=== PATIENT | male | born 2000 | race Caucasian/White ===

== ENCOUNTER 2020-10-02 10:24 | Outpatient (RCR) | payer MEDICAID, SELFPAY ==
--- NOTE | 2020-10-03 07:42 | HP.OTFCE.D ---
FCE D/C Summary - Discharge IRINEO SALOMON was seen for a one time visit for an FCE on 10/02/20 and is discharged.
--- NOTE | 2020-10-03 07:42 | HP.FCE ---
Floor (Occasional 1-33% of Day): 50# Floor (Frequent 34-66% of Day): 25# Floor (Constant 67-100% of Day): 10# Floor PDL: Medium Knee (Occasional 1-33% of Day): 50# Knee (Frequent 34-66% of Day): 25# Knee (Constant 67-100% of Day): 10# Knee PDL: Medium Waist (Occasional 1-33% of Day): 50# Waist (Frequent 34-66% of Day): 25# Waist (Constant 67-100% of Day): 10# Waist PDL: Medium Shoulder (Occasional 1-33% of Day): 50# Shoulder (Frequent 34-66% of Day): 25# Shoulder (Constant 67-100% of Day): 10# Shoulder PDL: Medium Overhead (Occasional 1-33% of Day): 35# Overhead (Frequent 34-66% of Day): 18# Overhead (Constant 67-100% of Day): 7# Overhead PDL: Light-Medium Comments: pt demo with good lifting mechanics during lift test Bending: Frequent Ability (34-66% of day) Comments: Not a job requirement Comments: Not a job requirement Reaching out: Frequent Ability (34-66% of day) Reaching up: Frequent Ability (34-66% of day) Sitting: Frequent Ability (34-66% of day) Walking: Frequent Ability (34-66% of day) Standing: Frequent Ability (34-66% of day) Duration Sedentary Sedentary Light Light Light Medium Medium Medium Heavy Very Heavy Heavy Occasional (0-33% of day) Frequent (34-66% of day) Constant (67-100% of day) 10 # Negligible Negligible 15 # 8 # Negligible 20 # 10# Negli. 35 # 18 # 7 # 50 # 25 # 10 # 75 # 100 # >100 # 38 # 50 # >50 # 15 # 20 # >20 # Height: 1.78 m Weight:: 83.007 kg Hand Dominance: Right Medical History Including Restrictions: Pt states he is good health and has not concerns. States he had an issue with low heart rate with chest pains while at work but after cardiac eval per pt it was determined he as a low heart rate. Diagnoses: low heart rate Symptoms: low heart rate. 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 pt quit this job and moved to [facility]. Behavioral: Pt was cooperative during the assessment and put forth good effort ADLS: pt states he lives with his family in two story home. Physical Examination: heart rate 44 ROM: pt demo ROM Limited hip flex bilaterally at 80* this is WFL. all other ROM is WFL Strength: pt demo with right UE and LE at 5/5 left UE and LE at 4+/5. pts left side was weaker than left but still testing WFL Right Extractor Plant Operator Strength Average: 63.00 Right Extractor Plant Operator Strength Percentile: .3% Left Extractor Plant Operator Strength Average: 50.00 Left Extractor Plant Operator Strength Percentile: <1.3% Right Lateral Pinch Average: 10.00 Right Lateral Pinch Percentile: <10% Left Lateral Pinch Average: 10.00 Left Lateral Pinch Percentile: <10% Right Tripod Pinch Average: 5.33 Right Tripod Pinch Percentile: <10% Left Tripod Pinch Average: 8.00 Left Tripod Pinch Percentile: <10% Sensation: Denies Fine Motor: Denies Balance: no noted loss of balance with functional assessment. pt did however have limited balance with single leg stand while performing ROM testing. Pt did not loss balance but demo limited time to stand on one leg. Bending: Pt demo the ability to bend forward three times, ten times and ten times rapidly. pt can bend forward on a frequent ability. Squatting: Not a Physical requirement Kneeling: Not a Physical requirement Reaching out/up: pt demo the ability to reach out/up three times/ten times and ten times rapidly. pt heart rate 68. pt can reach up/ out on a frequent ability Walking: pt states he walks and has walked up to 20 miles a day - pt states he ambulates 7-8 miles a day. pt can walk on a frequent ability. Standing: pt demo good ability to stand with both feet on the ground for 15 min with no expressed or apparent difficulty - no loss of balance- pt can stand of a frequent ability Sitting: pt demo the ability to sit for 40 min with no expressed or apparent discomfort. pt can sit on a frequent ability Climbing Stairs: pt ascended/descended ten steps with no use of handrail and a reciprocal step pattern. heart rate after 85 Floor Lift: pt demo good safe lift mechanics 50# from floor with good ability Knee Lift: pt demo good safe lift mechanics 50# from this level with good ability Waist Lift: pt demo good safe lift mechanics 50# from this level with good ability Shoulder Lift: pt demo good safe lift mechanics 50# from this level with good ability Overhead Lift: pt demo good safe lift mechanics 35# from this level with good ability Carrying: pt demo the ability to carry 50# for 40 feet with good ability Comments: pt demo the ability for pushing/pulling at 50# for a frequent. pt demo the ability to push/pull at 51-100# on an occasional ability. after lifting and over head task pts heart rate was 45 and ranged 40-52
== END 2020-10-02 19:00 | disposition home or self-care (01) ==
LOC: OT 10:24
PROVIDERS: Referring Provider Physician Assistant Surgical; Visit Provider Physician Assistant Surgical
DX: Z02.1 Encounter for pre-employment examination (principal)
CPT/HCPCS: 97750

== ENCOUNTER 2023-12-14 17:53 | Emergency (ER) | payer MEDICAID, SELFPAY ==
[2023-12-14 17:54] VITALS: BP 125/78; PULSE 48; RESP 18; TEMP 36.9; O2SAT 100; BMI 29.4
--- NOTE | 2023-12-14 18:38 | ED.VIS.DENTA ---
HPI History of Present Illness Chief Complaint: Dental Informant: patient Onset/Context/Timing Onset: Today Context: Sudden Onset Timing: Continuous Quality: Sharp Location: Right lower jaw Worsened by: Nothing Relieved by: - (Nothing) Associated Symptoms Assocated Symptom - Dental: cold sensitivity; Negative for fever, jaw swelling, face swelling or hot sensitivity Narrative Narrative: Patient presents with dental pain that began today. Patient states he has been having intermittent dental pain for the past few months. Patient states that today it became sharp and radiated to the right side of his head. Patient states nothing makes it worse and nothing makes it better. Patient does admit to cold sensitivity however. Patient denies any swelling of his jaw or face. Patient denies any fevers or chills. Patient denies any difficulty breathing or difficulty swallowing. PFSH PFSH Medical History no medical history no medical history Home Medications ?Medication ?Instructions ?Recorded ?Last Taken ?Type penicillin V potassium 500 mg 500 mg PO 4X/DAY #40 tabs 12/14/23 Unknown Rx tablet Allergy/AdvReac Type Severity Reaction Status Date / Time No Known Allergies Allergy Verified 12/14/23 17:55 Surgical History no surgical history no surgical history Social History Smoking Status: Never smoker ROS ROS ED Constitutional Constitutional ED: Denies chills or fever(s) Eyes Eyes: Denies blurry vision or change in vision ENT ENT ED: Denies rhinorrhea or sore throat Cardiovascular Cardiovascular: Denies chest pain or palpitations Respiratory/Chest Respiratory/Chest: Denies cough or dyspnea Gastrointestinal Gastrointestinal: Denies nausea or vomiting Genitourinary Genitourinary ED: Denies dysuria or hematuria Musculoskeletal Musculoskeletal: Denies back pain or neck pain Integumentary Denies abscess or rash Neurologic Neurologic: Reports headache(s); Denies weakness Allergic/Immunologic Allergic/Immunologic ED: Denies mouth swelling or urticaria EXAM Physical Exam Const Vital Signs: 12/14/23 17:54 Temperature 98.4 F Temperature Source Temporal Pulse Rate 48 L Respiratory Rate 18 Blood Pressure 125/78 H Blood Pressure Mean 93 Pulse Ox 100 Oxygen Delivery Method Room Air Positive well nourished and well developed General Appearance ED: well developed and NAD HEENT HEENT Narrative: There are multiple dental caries noted over the right lower molars. There are also some dental caries noted over the right upper molars. There is some mild gingival edema and tenderness over the right lower molar area. There is no fluctuance. There is no evidence of any abscess. There is no sublingual edema. Oropharynx is clear. Airway is patent. There is no evidence of Sebastian's angina. Mouth ED: Yes oral and palatal mucosa normal Mouth: oral and palatal mucosa normal Teeth and Gingiva: caries and gingiva abnormal Positive for gingival edema and gingival tenderness Throat: posterior oropharynx normal Neck no lymphadenopathy, supple and no JVD General: Negative for anterior neck swelling, tenderness or submandibular swelling Neuro oriented x3, CN's II-XII intact bilaterally, moves all extremities, no focal motor deficits and no sensory deficits noted Sensorium / Orientation: alert Motor Exam: strength 5/5 throughout Psych mental status grossly normal MDM MDM MDM Narrative Medical decision making narrative: Patient was advised that these are most likely infected dental caries. Patient was given a dose of Pen-Vee K here. Patient was given a prescription for Pen-Vee K. Patient was given a dental referral list. Patient was instructed to follow-up with his primary care physician in 5 to 7 days. Patient was also instructed to follow-up with his dentist in 5 to 7 days. Patient was instructed to return if worse in any way. Patient understood and was agreeable with the plan. All questions were answered. Discharge Plan Triage Chief Complaint: Dental ED Provider: Emerson Minaya Dx/Rx/DC Orders Clinical Impression: Infected dental caries Instructions: ED Dental Pain, ED Dental Cavity Prescriptions: New penicillin V potassium 500 mg tablet 500 mg PO 4X/DAY Qty: 40 0RF Primary Care Provider: Care Physician,No Primary Referrals: Care Physician,No Primary [Primary Care Provider] - Dentist,Your [STAFF PHYSICIAN] - 5-7 Days Print Language: [place] Disposition Disposition: Home, Self Care
[2023-12-14] MEDS: Penicillin Vk 250 MG Tablet 500 MG PO (18:50)
== END 2023-12-14 18:52 | disposition home or self-care (01) ==
PROVIDERS: Emergency Provider Emergency Medicine; Visit Provider Emergency Medicine
DX: K02.9 Dental caries, unspecified (principal)
CPT/HCPCS: 99282

== ENCOUNTER 2023-12-28 19:07 | Emergency (ER) | payer MEDICAID, SELFPAY ==
[2023-12-28 19:08] VITALS: BP 137/92; PULSE 97; RESP 16; TEMP 36.8; O2SAT 97; BMI 28.6
--- NOTE | 2023-12-28 19:46 | RAD_ITS ---
STUDY: X-RAY CHEST REASON FOR EXAM: Male, 23 years old. chest pain TECHNIQUE: AP portable COMPARISON: None. FINDINGS: The lungs are clear and expanded. There is no demonstrated pleural abnormality. Borderline cardiomegaly.. Normal mediastinum and tatyana. Normal visualized pulmonary arteries. Normal visualized aortic arch and descending thoracic aorta. Normal visualized thoracic spine. Normal visualized ribs, clavicles, and shoulders. There is no demonstrated abnormality of the visualized soft tissue structures of the upper abdomen. RAD/Chest 1 View (Portable) IMPRESSION: No acute cardiopulmonary pathology Electronically Signed: Reagan York MD at 20:25 EDT ,
--- NOTE | 2023-12-28 19:46 | ED.VIS.CHEST ---
HPI History of Present Illness Chief Complaint: Chest Pain Detail of Chief Complaint: Cough and chest pain Informant: patient Narrative Narrative: Patient presents to the emergency department with complaint of a cough that has had for 4 days. Patient also developed some chest discomfort retrosternal 3 days ago but then that resolved and was better for 2 days until today when he went to work and started moving around got more discomfort. He describes a light discomfort or pressure retrosternally that gets worse with activity. Yesterday he woke up feeling very short of breath. He went to urgent care yesterday and was diagnosed with a common cold. He denies recent travel or surgery. No history of PE or DVT. He had no fevers. Cough mostly nonproductive. No significant family history of heart disease. [facility] Medical History (Updated 12/28/23 @ 20:[address] Ugo Milton, DO) Heart abnormality Home Medications ?Medication ?Instructions ?Recorded ?Last Taken ?Type penicillin V potassium 500 mg 500 mg PO 4X/DAY #40 tabs 12/14/23 Unknown Rx tablet Allergy/AdvReac Type Severity Reaction Status Date / Time No Known Allergies Allergy Verified 12/28/23 19:10 Social History Smoking Status: Never smoker ROS ROS ED Review of Systems ROS Unobtainable: other Constitutional Constitutional ED: Reports lethargy; Denies chills, fever(s), sweats or weight loss Eyes Eyes: Denies blurry vision, change in vision or diplopia ENT ENT ED: Denies rhinorrhea or sore throat Cardiovascular Cardiovascular: Reports chest pain; Denies orthopnea or racing heartbeat Respiratory/Chest Respiratory/Chest: Reports cough and dyspnea; Denies dyspnea on exertion, orthopnea or sputum Gastrointestinal Gastrointestinal: Denies abdominal pain, diarrhea, nausea or vomiting Genitourinary Genitourinary ED: Denies dysuria, hematuria or urinary frequency Musculoskeletal Musculoskeletal: Denies arthralgias, back pain, myalgias or neck pain Integumentary Denies abscess, Abrasions or rash Neurologic Neurologic: Denies headache(s) or weakness Psychiatric Psychiatric: Denies anxiety, depression or suicidal thoughts Endocrine Endocrinology: Denies polydipsia, polyphagia or polyuria Hematologic/Lymphatic Hematologic/Lymphatic: Denies easy bleeding, easy bruising or lymphadenopathy Allergic/Immunologic Allergic/Immunologic ED: Denies mouth swelling, tongue swelling or urticaria EXAM Physical Exam Const Vital Signs: 12/28/23 19:08 12/28/23 20:00 12/28/23 20:08 Temperature 98.3 F Temperature Source Temporal Pulse Rate 97 59 L Respiratory Rate 16 16 Blood Pressure 137/92 H 122/83 H Blood Pressure Mean 107 96 Pulse Ox 97 97 Oxygen Delivery Method Room Air Room Air Room Air Positive well nourished and well developed General Appearance ED: well developed and NAD HEENT Reports TM's clear and moist mucous membranes normocephalic and atraumatic; Negative for trauma or tenderness Tympanic Membrane ED: Yes TM's clear Eyes PERRL and EOMs intact bilaterally General Eye ED: Negative for pale conjunctiva or scleral icterus Neck no lymphadenopathy, supple and no JVD General: Negative for tenderness Chest Wall inspection of chest normal and palpation of chest normal Chest: Negative for tenderness Resp normal respiratory effort and clear to auscultation bilaterally Effort and Inspection: Negative for respiratory distress or pain with movement Auscultation: Negative for rhonchi, wheezes or diminished lung sounds Cardio regular rate, regular rhythm, S1 normal heart sound, S2 normal heart sound and no murmurs Peripheral Pulses: pulses 2+ throughout GI normal to inspection, nondistended, normoactive bowel sounds, soft to palpation, non-tender, non-distended and no masses Back/Spine no CVA tenderness and no thoracic nor lumbar tenderness Extremity normal to inspection General Extremety ED: Negative for edema General Extremity: Negative for edema Neuro oriented x3, CN's II-XII intact bilaterally, no sensory deficits noted and gait normal Sensorium / Orientation: awake, alert, oriented to person, oriented to place and oriented to time Motor Exam: strength 5/5 throughout and strength abnormal Psych mental status grossly normal Skin no rashes or lesions noted and no wounds MDM MDM MDM Narrative Medical decision making narrative: Patient with cough and then chest pain for 4 days. On exam a.m. he looks well. EKG obtained on arrival showed a sinus rhythm with a first-degree AV block with ventricular rate of 85 bpm. CBC with differential white count 6.0 with hemoglobin 15.5 and platelet count of 278. Chemistries unremarkable. D-dimer was normal at less than 0.27. Chemistries unremarkable. Troponin was 6. 1 view chest x-ray was normal. Patient had COVID flu and RSV testing that was negative. This point I feel he can be safely discharged to home. Suspect likely viral URI. Etiology of his chest pain is suspect may be musculoskeletal. Patient advised to take ibuprofen for discomfort. Lab Data Attestation: I reviewed the patient's lab results. Labs: Laboratory Results - last 24 hr 12/28/23 19:30 WBC 6.0 RBC 5.13 Hgb 15.5 Hct 43.6 MCV 85.0 MCH 30.2 MCHC 35.6 RDW Std Deviation 37.5 RDW Coeff of Bj 12.1 Plt Count 278 MPV 10.1 Immature Gran % (Auto) 0.300 Neut % (Auto) 62.4 Lymph % (Auto) 20.6 [place] % (Auto) 13.8 H Eos % (Auto) 2.2 Baso % (Auto) 0.7 Absolute Neuts (auto) 3.8 Absolute Lymphs (auto) 1.24 Nucleated RBC % 0 D-Dimer Quant (PE/DVT) < 0.27 L Sodium 138 Potassium 3.3 L Chloride 105 Carbon Dioxide 24.0 Anion Gap 9 BUN 14 Creatinine 1.22 Estim Creat Clear Calc 102.52 Est GFR (MDRD) Af Amer 93 Est GFR (MDRD) Non-Af 77 BUN/Creatinine Ratio 11.5 Glucose 122 H Calcium 9.3 Troponin I High Sens 6 Radiography Diagnostic Testing: Clinical Impression(s) from Imaging Studies Chest X-Ray 12/28/23 19:46 IMPRESSION: No acute cardiopulmonary pathology Electronically Signed: Reagan York MD at 20:25 EDT , Discharge Plan Triage Chief Complaint: Chest Pain ED Provider: Ugo Milton Dx/Rx/DC Orders Clinical Impression: URI, acute, Chest pain Instructions: ED Chest Pain, Uncertain Cause, ED URI, Viral, No Abx (Adult) Prescriptions: No Action penicillin V potassium 500 mg tablet 500 mg PO 4X/DAY Qty: 40 0RF Primary Care Provider: Vaughn Powell Referrals: Town Doctor,Out of [Non-Staff] - Activity Restrictions/Additional Instructions: See your family doctor within next 3 to 5 days. Print Language: Malagasy Disposition Disposition: Home, Self Care
[2023-12-28 19:57] LABS: Absolute Lymphocyte Count 1.24 X10^3/uL (0.83-4.51); Absolute Neutrophil Count 3.8 X10^3/uL (2.0-7.7); Basophil# 0.04 X10^3/uL; Basophil% 0.7 % (0-1); Eosinophil# 0.13 X10^3/uL; Eosinophils% 2.2 % (0-5); Hematocrit 43.6 % (40-54); Hemoglobin 15.5 g/dL (13.0-16.5); Lymphocyte # 1.24 X10^3/ul (0.83-4.51); Lymphocyte % 20.6 % (19-41); Mean Corp Hgb Conc 35.6 g/dL (32-36); Mean Corpuscular Hgb 30.2 pg (27.0-32.0); Mean Platelet Vol. 10.1 fl (6.2-12.0); Monocyte# 0.83 X10^3/uL; Monocyte% 13.8 % (0-10); NRBC Flagged by Analyzer 0 % (0-5); Neutrophil # 3.75 X10^3/uL (2.7-7.7); Neutrophil % 62.4 % (47-70); Platelet Count 278 K/mm3 (150-450); RBC Distribution Width CV 12.1 % (11.6-14.6); RBC Distribution Width SD 37.5 fl (35.1-43.9); Red Blood Count 5.13 M/mm3 (4.6-6.2)
[2023-12-28] MEDS: Aspirin 81 MG TAB.CHEW 324 MG PO (20:07)
[2023-12-28] MEDS: 0.9% Normal Saline (1000mL) 1,000 ML 150 ML IV (20:07)
[2023-12-28 20:08] VITALS: BP 122/83; PULSE 59; RESP 16; O2SAT 97
[2023-12-28 20:19] LABS: Anion Gap 9 (5-15); BUN 14 mg/dL (7-18); BUN/Creat Ratio 11.5 RATIO (10-20); Calcium,Total 9.3 mg/dL (8.5-10.1); Chloride 105 mmol/L (98-107); Creatinine, Serum 1.22 mg/dL (0.70-1.30); EST Glomerular Filtration Rate 77 mL/min (>60); Est Glom Filt Rate - Afr Amer 93 mL/min (>60); Estimated Creatinine Clearance 102.52 ml/min; Glucose 122 mg/dL (74-106); Potassium 3.3 mmol/L (3.5-5.1); Sodium Level 138 mmol/L (136-145); Troponin-I HS (w/2H Reflex) 6 pg/mL (3.0-78.0)
[2023-12-28 20:25] LABS: D-Dimer Quantitative (DVT/PE) < 0.27 FEU/ug/m (0.27-0.49)
[2023-12-28 21:00] VITALS: BP 120/75; PULSE 58; RESP 16; O2SAT 98
[2023-12-28 21:36] VITALS: BP 119/82; PULSE 64; RESP 18; TEMP 36.6; O2SAT 94
[2023-12-28 21:51] LABS: Reflex Troponin-HS? (from REC) Y
== END 2023-12-28 21:36 | disposition home or self-care (01) ==
PROVIDERS: Emergency Provider Emergency Medicine; PCP Family Medicine; Visit Provider Emergency Medicine
DX: J06.9 Acute upper respiratory infection, unspecified (principal); R07.9 Chest pain, unspecified
CPT/HCPCS: 71045; 80048; 84484; 85025; 85379; 87631; 93005; 96360; 99284; J7030; A4216

== ENCOUNTER 2024-09-11 23:15 | Emergency (ER) | payer OTHER, MEDICAID, SELFPAY ==
[2024-09-11 23:17] VITALS: BP 143/98; PULSE 85; RESP 18; TEMP 37.4; O2SAT 99; BMI 30.6
--- NOTE | 2024-09-11 23:29 | CT_ITS ---
EXAM: CT brain without IV contrast CLINICAL HISTORY: Syncope. Fall. Right-sided numbness. COMPARISON: None. TECHNIQUE: Multiple, axial CT images of the brain are obtained without intravenous contrast. Coronal and sagittal 2D reformatted images are provided for better evaluation. FINDINGS: Brain volume is age appropriate. The ventricles are not effaced or dilated. No midline shift, mass effect, or extra-axial fluid collections are identified. No acute intracranial hemorrhage, mass, or acute territorial infarction is identified per CT criteria. Shearer-white junction is preserved. Calvarium is intact. Visualized paranasal sinuses demonstrates mucosal thickening in the bilateral maxillary sinuses and right ethmoid sinus. CT/Brain/Head without Contrast IMPRESSION: No acute intracranial process. Reading Location: [facility]
--- NOTE | 2024-09-11 23:30 | ED.RN ---
DISCUSSED PT CASE WITH DR. JONES, NO STROKE ALERT. VERBAL ORDER FOR CT BRAIN.
--- NOTE | 2024-09-12 00:04 | RAD_ITS ---
PROCEDURE: CHEST 1 VIEW (PORTABLE) REASON FOR EXAM: 24-year-old male, stroke. TECHNIQUE: Frontal view of the chest. COMPARISON: Chest radiograph 12/28/2023. FINDINGS: The heart size is normal. No focal consolidation, pleural effusion or pneumothorax. The bones are unremarkable. RAD/Chest 1 View (Portable) IMPRESSION: NEGATIVE CHEST. Reading Location: [id number]
[2024-09-12 00:22] LABS: Anion Gap 7 (5-15); BUN 14 mg/dL (7-18); BUN/Creat Ratio 13.7 RATIO (10-20); Calcium,Total 9.3 mg/dL (8.5-10.1); Chloride 107 mmol/L (98-107); Creatinine, Serum 1.02 mg/dL (0.70-1.30); EST Glomerular Filtration Rate 94 mL/min (>60); Est Glom Filt Rate - Afr Amer 114 mL/min (>60); Estimated Creatinine Clearance 125.37 ml/min; Glucose 102 mg/dL (74-106); Potassium 3.4 mmol/L (3.5-5.1); Sodium Level 140 mmol/L (136-145)
[2024-09-12 00:32] VITALS: O2SAT 97
[2024-09-12 00:44] VITALS: BP 145/89; BP 147/98; BP 156/103; PULSE 70; PULSE 86; PULSE 92
[2024-09-12 01:00] VITALS: BP 151/88; PULSE 93; RESP 18; O2SAT 98
[2024-09-12 01:22] LABS: Absolute Lymphocyte Count 1.78 X10^3/uL (0.83-4.51); Absolute Neutrophil Count 5.7 X10^3/uL (2.0-7.7); Basophil# 0.04 X10^3/uL; Basophil% 0.4 % (0-1); Eosinophils% 1.1 % (0-5); Hematocrit 44.3 % (40-54); Hemoglobin 15.2 g/dL (13.0-16.5); Lymphocyte # 1.78 X10^3/ul (0.83-4.51); Lymphocyte % 19.9 % (19-41); Mean Corp Hgb Conc 34.3 g/dL (32-36); Mean Corpuscular Hgb 29.5 pg (27.0-32.0); Mean Platelet Vol. 9.9 fl (6.2-12.0); Monocyte# 1.24 X10^3/uL; Monocyte% 13.9 % (0-10); NRBC Flagged by Analyzer 0 % (0-5); Neutrophil # 5.65 X10^3/uL (2.7-7.7); Neutrophil % 63.1 % (47-70); Platelet Count 276 K/mm3 (150-450); RBC Distribution Width CV 12.4 % (11.6-14.6); RBC Distribution Width SD 39.3 fl (35.1-43.9); Red Blood Count 5.15 M/mm3 (4.6-6.2)
--- NOTE | 2024-09-12 01:28 | CT_ITS ---
PROCEDURE: CTA HEAD AND NECK W/ CONTRAST REASON FOR EXAM: 24-year-old male, dizziness. TECHNIQUE: CTA imaging of the head and neck from the aortic arch to the skull vertex with intravenous contrast. 3D reconstructions. CONTRAST: [id number]. COMPARISON: CT head 09/11/2024. FINDINGS: Aortic Arch: Normal size and branching pattern. No significant atherosclerotic plaque. Brachiocephalic and Subclavians: Unremarkable RIGHT Carotid: Right CCA: Unremarkable. Right ICA: Unremarkable. Maximum stenosis (NASCET): 0 % Right ECA: Unremarkable. LEFT Carotid: Left CCA: Unremarkable. Left ICA: Unremarkable. Maximum stenosis (NASCET): 0 % Left ECA: Unremarkable. Vertebrals: Patent. RIGHT Vertebral: Unremarkable. LEFT Vertebral: Unremarkable. No intracranial aneurysms or large vascular malformations are identified. Anterior cerebral arteries: Unremarkable. Middle cerebral arteries: Unremarkable. Basilar artery: Unremarkable. Posterior cerebral arteries: Unremarkable. Other major branches of the posterior circulation: Unremarkable. Major venous structures: Unremarkable. Other findings: No lymphadenopathy. Lung apices are clear. Retained secretions within the central airways. Bones are unremarkable. CT/CTA Head AND Neck W/ Contrast IMPRESSION: No intracranial aneurysm or large vessel occlusion. One or more dose reduction techniques were used (e.g., Automated exposure contr ol, adjustment of the mA and/or kV according to patient size, use of iterative reconstruction technique). Reading Location: [facility]
[2024-09-12] MEDS: diazePAM 5 MG Tablet PO (01:39)
[2024-09-12] MEDS: 0.9% Normal Saline (1000mL) 1,000 ML 999 ML IV (01:39)
[2024-09-12 03:00] VITALS: BP 122/50; PULSE 73; RESP 18; O2SAT 99
--- NOTE | 2024-09-12 03:55 | EX.ED.DYSGE1 ---
HPI History of Present Illness Chief Complaint: Syncope Informant: patient and parent Narrative Narrative: Patient is a 24-year-old male with no significant past medical history. He reports that over the past week he has been experiencing headache with lightheadedness/dizziness. The patient also states he feels like his right side is weak. Patient denies any history of illicit drug use father reports there is no history of abnormal cardiac rhythm or history of brain tumor. However as the patient has been giving symptoms time to resolve and they have not done so he presents for evaluation [facility] Medical History (Updated 09/15/24 @ 06:[address] Jamie Ramirez, DO) Concussion Heart abnormality Home Medications ?Medication ?Instructions ?Recorded ?Last Taken ?Type diazepam 5 mg tablet (Valium) 5 mg PO TID PRN vertigo/dizziness 09/12/24 Unknown Rx 7 days #21 tabs Allergy/AdvReac Type Severity Reaction Status Date / Time No Known Allergies Allergy Verified 09/11/24 23:16 Social History Smoking Status: Never smoker ROS ROS ED Constitutional Constitutional ED: Reports chills, fever(s) and subjective Eyes Eyes: Denies blurry vision or change in vision ENT ENT ED: Reports rhinorrhea and sore throat Cardiovascular Cardiovascular: Reports other Details: Positive syncope ; Denies chest pain Respiratory/Chest Respiratory/Chest: Reports cough; Denies dyspnea Gastrointestinal Gastrointestinal: Denies abdominal pain, diarrhea, nausea or vomiting Genitourinary Genitourinary ED: Denies dysuria Musculoskeletal Musculoskeletal: Reports myalgias Integumentary Denies rash Neurologic Neurologic: Reports headache(s), weakness and other Details: Positive dizziness Hematologic/Lymphatic Hematologic/Lymphatic: Denies easy bleeding or easy bruising EXAM Physical Exam Const Vital Signs: 09/11/24 23:17 09/12/24 00:32 09/12/24 00:32 Temperature 99.4 F H Temperature Source Oral Pulse Rate 85 Pulse Rate [Lying] Pulse Rate [Sitting (for 1 minute prior to obtaining)] Pulse Rate [Standing (for 1 minute prior to obtaining)] Respiratory Rate 18 Respiratory Effort Normal Non-Labored Respiratory Pattern Normal Blood Pressure 143/98 H Blood Pressure [Lying] Blood Pressure [Sitting (for 1 minute prior to obtaining)] Blood Pressure [Standing (for 1 minute prior to obtaining)] Blood Pressure Mean 113 Blood Pressure Mean [Lying] Blood Pressure Mean [Sitting (for 1 minute prior to obtaining)] Blood Pressure Mean [Standing (for 1 minute prior to obtaining)] Pulse Ox 99 97 Oxygen Delivery Method Room Air Room Air 09/12/24 00:44 09/12/24 01:00 09/12/24 03:00 Temperature Temperature Source Pulse Rate 93 73 Pulse Rate [Lying] 70 Pulse Rate [Sitting (for 1 minute prior to obtaining)] 86 Pulse Rate [Standing (for 1 minute prior to obtaining)] 92 Respiratory Rate 18 18 Respiratory Effort Respiratory Pattern Blood Pressure 151/88 H 122/50 H Blood Pressure [Lying] 145/89 H Blood Pressure [Sitting (for 1 minute prior to obtaining)] 147/98 H Blood Pressure [Standing (for 1 minute prior to obtaining)] 156/103 H Blood Pressure Mean 109 74 Blood Pressure Mean [Lying] 107 Blood Pressure Mean [Sitting (for 1 minute prior to obtaining)] 114 Blood Pressure Mean [Standing (for 1 minute prior to obtaining)] 120 Pulse Ox 98 99 Oxygen Delivery Method Room Air Room Air Positive well nourished and well developed General Appearance ED: well developed; Negative for pallor HEENT Reports dry mucous membranes HEENT Narrative: Nasal mucosa is hyperemic and boggy with enlarged inferior nasal turbinates There is cobblestoning noted in the posterior pharynx consistent with sinus drainage without airway edema or compromise Bilateral TMs are retracted without secondary findings to suggest infection Mouth ED: Yes dry mucous membranes Mouth: dry mucous membranes Eyes PERRL and EOMs intact bilaterally General Eye ED: Negative for scleral icterus Neck supple Neck Narrative: No nuchal rigidity or meningeal signs Resp normal respiratory effort and clear to auscultation bilaterally Cardio regular rate and regular rhythm Rate: other Other Details: Heart is regular rate and rhythm without murmurs rubs or gallop Radial and carotid pulses are equal and symmetric No carotid bruit noted GI normal to inspection, nondistended, normoactive bowel sounds, non-tender, non-distended and no masses Auscultation: normoactive bowel sounds Palpation: soft Extremity normal to inspection Extremity Narrative: No asymmetric edema no pitting edema negative Homans' sign bilaterally Neuro oriented x3, CN's II-XII intact bilaterally and no sensory deficits noted Neuro Narrative: GCS of 15 Cranial nerves II through XII are grossly intact Patient does have slight weakness of the right arm and right leg when held up against gravity compared to left There is mild horizontal nystagmus noted Positive [place] exam on right Sensorium / Orientation: alert Psych Psych Narrative: Patient has a flat affect Skin no rashes or lesions noted, no wounds and No skin turgor normal Skin Narrative: Increase skin turgor is noted General Skin Exam: Negative for jaundice or pallor MDM MDM MDM Narrative Medical decision making narrative: Patient arrived to the ER hypertensive and with a low-grade fever. He reported roughly 1 week of lightheadedness/dizziness as well as bouts of syncope. Differential diagnosis is for potential abnormal cardiac rhythm versus acute blood loss anemia versus acute kidney injury versus electrolyte abnormality versus infection such as influenza RSV or COVID. With the fact he has had recurrent dizziness as well as some weakness in the right arm and right leg there is concern for potential acute CVA versus vertigo. Secondary to this basic blood work was obtained with viral swab as well as CTA of the head and neck. Laboratory studies showed no signs of acute blood loss anemia acute kidney injury or clinically significant electrolyte abnormality. CTA revealed no signs of stenosis or LVO. Patient's viral swab was positive for influenza which does correlate with his physical exam and symptoms. He was given Valium and IV fluids and his reported dizziness improved. On physical exam he also had resolution of his right sided weakness. Therefore I feel that as symptoms have improved with hydration and volume and that his CTA is negative and blood work reveals no acute findings this is most likely a combination of dehydration influenza and vertigo and therefore there is no need for admission or emergent neurology consultation and he is otherwise safe for discharge. History & Record Review Discussion w/independent historian: Patient and Family Lab Data Attestation: I reviewed the patient's lab results. Labs: Laboratory Results - last 24 hr 09/11/24 23:50 WBC 9.0 RBC 5.15 Hgb 15.2 Hct 44.3 MCV 86.0 MCH 29.5 MCHC 34.3 RDW Std Deviation 39.3 RDW Coeff of Bj 12.4 Plt Count 276 MPV 9.9 Immature Gran % (Auto) 1.600 H Neut % (Auto) 63.1 Lymph % (Auto) 19.9 [place] % (Auto) 13.9 H Eos % (Auto) 1.1 Baso % (Auto) 0.4 Absolute Neuts (auto) 5.7 Absolute Lymphs (auto) 1.78 Nucleated RBC % 0 Sodium 140 Potassium 3.4 L Chloride 107 Carbon Dioxide 27.0 Anion Gap 7 BUN 14 Creatinine 1.02 Estim Creat Clear Calc 125.37 Est GFR (MDRD) Af Amer 114 Est GFR (MDRD) Non-Af 94 BUN/Creatinine Ratio 13.7 Glucose 102 Calcium 9.3 Radiography Diagnostic Testing: Clinical Impression(s) from Imaging Studies Brain CT 09/11/24 23:29 IMPRESSION: No acute intracranial process. Reading Location: [facility] Chest X-Ray 09/12/24 00:04 IMPRESSION: NEGATIVE CHEST. Reading Location: [facility] Head/Neck CTA 09/12/24 01:28 IMPRESSION: No intracranial aneurysm or large vessel occlusion. One or more dose reduction techniques were used (e.g., Automated exposure control, adjustment of the mA and/or kV according to patient size, use of iterative reconstruction technique). Reading Location: [facility] Chest x-ray as interpreted by the emergency medicine physician reveals no acute infiltrate pneumothorax or pleural effusion Discharge Plan Triage Chief Complaint: Syncope ED Provider: Jamie Ramirez Dx/Rx/DC Orders Clinical Impression: Influenza A, Vertigo, Dehydration Instructions: ED Influenza (Adult), ED Vertigo, Unspecified Prescriptions: New diazepam [Valium] 5 mg tablet 5 mg PO TID PRN (Reason: vertigo/dizziness) 7 Days Qty: 21 0RF Stand Alone Forms: ED Work / School Excuse Primary Care Provider: Vaughn Powell Referrals: Vaughn Powell MD [Primary Care Provider] - Activity Restrictions/Additional Instructions: You tested positive for influenza today which can be the cause of your fever congestion and fatigue. Your exam indicates that there is pressure on your inner ear secondary to the influenza causing vertigo/dizziness. Your CT scans showed no sign of brain bleed or stroke. Use the Valium as directed to help control any further dizzy sensations and return to the ER should you have any further concerns Print Language: Upper Sorbian Disposition Disposition: Home, Self Care Discharge Date/Time: 09/12/24 04:05
[2024-09-12 03:56] VITALS: BP 140/80; PULSE 66; RESP 18; TEMP 36.8; O2SAT 95
== END 2024-09-12 04:05 | disposition home or self-care (01) ==
PROVIDERS: Emergency Provider Emergency Medicine; PCP Family Medicine; Visit Provider Emergency Medicine
DX: J10.1 Influenza due to other identified influenza virus with other respiratory manifestations (principal); R42 Dizziness and giddiness; E86.0 Dehydration
CPT/HCPCS: 70450; 70496; 70498; 71045; 80048; 85025; 87631; 93005; 96360; 96361; 99285; Q9967; A4216